=== PATIENT | female | born 1970 | race American Indian/Alaskan Native ===

== ENCOUNTER 2019-05-05 03:26 | Inpatient (IN) | payer MEDICARE ==
[2019-05-05] MEDS ORDERED: HALOPERIDOL LACTATE 5 MG/1 ML INJ IM PRN (03:54)
[2019-05-05] MEDS ORDERED: LORazepam 2 MG/ML VIAL IM PRN (03:54)
[2019-05-05] MEDS: LORazepam 2 MG TAB PO PRN (18:33)
[2019-05-05] MEDS: HALOPERIDOL 5 MG TAB PO PRN (18:33)
[2019-05-05 18:41] LABS: Basophils # (Auto) 0.1 K/mm3 (0.0-0.1); Basophils % (Auto) 1.4 % (0.0-1.8); Eosinophils % (Auto) 0.8 % (0.0-4.3); Hemoglobin 13.7 gm/dl (10.1-14.3); Lymphocytes # (Auto) 1.3 K/mm3 (1.2-5.4); Lymphocytes % (Auto) 27.7 % (13.4-35.0); Mean Corpuscular HGB Conc 33 % (30-34); Mean Corpuscular Volume 103 fl (79-97); Monocytes # (Auto) 0.3 K/mm3 (0.0-0.8); Monocytes % (Auto) 7.2 % (0.0-7.3); Platelet Count 277 K/mm3 (140-440); Red Blood Count 4.09 M/mm3 (3.65-5.03); Red Cell Distribution Width 16.9 % (13.2-15.2)
[2019-05-05 18:49] LABS: BUN/Creatinine Ratio 14; Blood Urea Nitrogen 7 mg/dL (7-17); Calcium 9.3 mg/dL (8.4-10.2); Chol/HDL Ratio 3.12 %; HDL Cholesterol 56 mg/dL (40-59); Hemolysis Index 75; LDL Cholesterol,Direct 101 mg/dL (50-130)
[2019-05-05] MEDS: ACETAMINOPHEN 325 MG TAB PO PRN (20:53)
[2019-05-05] MEDS: NICOTINE 21 MG/24 HR PATCH TD SCH (22:07)
[2019-05-06] MEDS: LORazepam 2 MG TAB PO PRN ×3 (08:07→22:49)
[2019-05-06] MEDS: ACETAMINOPHEN 325 MG TAB PO PRN ×2 (08:07→23:05)
[2019-05-06] MEDS: NICOTINE 21 MG/24 HR PATCH TD SCH (10:11)
--- NOTE | 2019-05-06 11:48 | Consultation ---
History of Present Illness - History of Present Illness 49-year-old woman who presents to the hospital to psychiatric unit for suicidal ideation and depression. Medicine consulted for management of chronic medical issues Patient reports history of neuropathy for which she takes gabapentin and ports history of traumatic brain injury for which she takes Tylenol 3 for chronic headaches. She states that she still feels depressed, but would like to get her meds for chronic conditions. Past medical history Neuropathy, history of TBI with chronic headaches, hypertension Psychiatric history Bipolar 1 disorder, depressed, severe (Acute) Post traumatic stress disorder (PTSD) (Acute) - Substance History Drug Use: marijuana Tobacco Type: Cigarettes Alcohol Use: Yes (Socially, per patient) - Social History Social history: single (homeless, disabled, completed high school, no legal problems and no access to guns) Review of Systems Psychiatric: insomnia, depression, irritability headaches, neuropathy pain Medications and Allergies Allergies Allergy/AdvReac Type Severity Reaction Status Date / Time metoclopramide [From Reglan] AdvReac Swelling Verified 05/05/19 03:42 Home Medications Medication Instructions Recorded Confirmed Last Taken Type ARIPiprazole [Abilify TAB] 5 mg PO QDAY #30 tablet 05/13/19 Unknown Rx Gabapentin [Neurontin] 300 mg PO TID #90 capsule 05/13/19 Unknown Rx Hydrochlorothiazide 12.5 mg PO DAILY #30 05/13/19 Unknown Rx Mirtazapine [Remeron 15mg TAB] 15 mg PO QHS #30 tablet 05/13/19 Unknown Rx Nicotine [Habitrol] 21 mg TD QDAY #30 patch 05/13/19 Unknown Rx Propranolol [Inderal] 20 mg PO Q12HR #60 tablet 05/13/19 Unknown Rx amLODIPine 10 mg PO DAILY #30 05/13/19 Unknown Rx Active Meds: Active Medications Acetaminophen (Tylenol) 650 mg PO Q6H PRN PRN Reason: Pain, Mild (1-3) Last Admin: 05/06/19 08:07 Dose: 650 mg Documented by: Haloperidol (Haldol) 5 mg PO Q6H PRN PRN Reason: Agitation Last Admin: 05/05/19 18:33 Dose: 5 mg Documented by: Haloperidol Lactate (Haldol) 5 mg IM Q6H PRN PRN Reason: Agitation Lorazepam (Ativan) 2 mg PO Q6H PRN PRN Reason: Agitation Last Admin: 05/06/19 08:07 Dose: 2 mg Documented by: Lorazepam (Ativan) 2 mg IM Q6H PRN PRN Reason: Agitation Miscellaneous Medication (Amlodipine) 10 mg PO DAILY AMY Miscellaneous Medication (Hydrochlorothiazide) 12.5 mg PO DAILY [facility] Nicotine (Habitrol) 21 mg TD QDAY AMY Last Admin: 05/06/19 10:11 Dose: 21 mg Documented by: Review of Systems All systems: negative Constitutional: no anorexia Ears, nose, mouth and throat: other (Headache), no ear pain Breasts: deferred Cardiovascular: no chest pain Respiratory: no cough Gastrointestinal: no abdominal pain Rectal: no pain Musculoskeletal: no neck stiffness Integumentary: no rash Neurological: other (Neuropathy pain), no head injury Psychiatric: no anxiety Endocrine: no cold intolerance Hematologic/Lymphatic: no easy bruising Allergic/Immunologic: no urticaria Exam - Constitutional Vitals: Temp Pulse Resp BP Pulse Ox 97.6 F 72 18 119/76 100 05/06/19 10:00 05/06/19 10:00 05/05/19 22:00 05/06/19 10:00 05/06/19 10:00 General appearance: Present: no acute distress, well-nourished - EENT Eyes: Present: PERRL ENT: hearing intact, clear oral mucosa - Neck Neck: Present: supple, normal ROM - Respiratory Respiratory effort: normal Respiratory: bilateral: CTA - Cardiovascular Heart Sounds: Present: S1 & S2. Absent: rub, click - Extremities Extremities: pulses symmetrical, No edema Peripheral Pulses: within normal limits - Abdominal General gastrointestinal: Present: soft, non-tender, non-distended, normal bowel sounds Female genitourinary: Present: normal - Integumentary Integumentary: Present: clear, warm, dry - Musculoskeletal Musculoskeletal: gait normal, strength equal bilaterally - Psychiatric Psychiatric: no appropriate mood/affect, intact judgment & insight - Neurologic Neurologic: CNII-XII intact, moves all extremities Results - Labs CBC & Chem 7: 05/05/19 18:22 05/05/19 18:22 Labs: Abnormal lab results 05/05/19 05/05/19 05/05/19 Range/Units 16:25 18:22 18:22 MCV 103 H (79-97) fl MCH 33 H (28-32) pg RDW 16.9 H (13.2-15.2) % Creatinine 0.5 L (0.7-1.2) mg/dL Glucose 126 H (65-100) mg/dL POC Glucose 151 H (70-105) Triglycerides 150 H (2-149) mg/dL Assessment and Plan 49-year-old woman with history of bipolar disease who presents with suicidal ideation and uncontrolled bipolar disease. Labs- stable htn restart home meds Chronic headaches, history of TBI Restart Tylenol 3 Neuropathy Continue gabapentin
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
[2019-05-06] MEDS: ARIPiprazole 10 MG TAB PO SCH (13:14)
[2019-05-06] MEDS: ACETAMINOPHEN W/CODEINE 300-30 MG TAB PO PRN (15:39)
[2019-05-06 16:05] LABS: Bilirubin,Urine NEG (Negative); Blood,Urine NEG (Negative); Color,Urine Straw (Yellow); Protein,Urine <15 mg/dL mg/dL (Negative); Urobilinogen,Urine < 2.0 mg/dL (<2.0)
[2019-05-06] MEDS: HALOPERIDOL 5 MG TAB PO PRN (22:49)
[2019-05-07] MEDS: ACETAMINOPHEN W/CODEINE 300-30 MG TAB PO PRN ×2 (08:51→15:14)
[2019-05-07] MEDS: NICOTINE 21 MG/24 HR PATCH TD SCH (09:18)
[2019-05-07] MEDS: ARIPiprazole 10 MG TAB PO SCH (09:19)
[2019-05-07] MEDS: hydroCHLOROthiazide 12.5 MG CAP PO SCH (09:19)
[2019-05-07] MEDS: amLODIPine 10 MG TAB PO SCH (09:19)
[2019-05-07] MEDS ORDERED: NON-FORMULARY EACH (Hydrochlorothiazide 12.5 MG) PO SCH (10:00)
[2019-05-07] MEDS ORDERED: NON-FORMULARY EACH (Amlodipine 10 MG) PO SCH (10:00)
--- NOTE | 2019-05-07 11:37 | Progress Note ---
Subjective Date of service: 05/07/19 Principal diagnosis: Bipolar I depressed, PTSD Subjective Comment: Patient is severely depressed and anxious. She also complains of chronic headaches. MSE Orientation: time, place, person Affect: depressed Mood: congruent with affect Thought Process: Intact Perceptions: none Speech: normal rate and pattern Concentration: focused Motor activity: normal Level of consciousness: alert Memory: Intact Sleep Symptoms: Insomnia Appetite: decreased Interaction: cooperative Objective - Criteria for Continued Treatment Criteria for Continued Treatment: Improving Level of Functioning, Stablizing Level of Functioning, Improving Emotional/Socia - Objective Observation Participation Level: Moderate Assessment and Plan - Patient Problems (1) Bipolar 1 disorder, depressed, severe Current Visit: Yes Status: Acute Plan to address problem: Patient will be admitted for inpatient psychiatric evaluation, medication adjustment and close monitoring The patient's behavior, mood, sleep and appetite will be closely monitored. Patient will be enrolled in individual and group therapeutic sessions and enc ouraged to attend. Patient will be provided with a safe and structured environment. Patient's physical health needs will be addressed by the Hospitalist. Social Assessment will be completed and the Hydro Technician will work with patient and family to ensure a suitable and safe disposition Medication adjustment will be made as clinically indicated Will add Gabapentin 300mg tid to help with mood, anxiety and headaches. (2) Post traumatic stress disorder (PTSD) Current Visit: Yes Status: Acute Medications & Allergies - Medications Allergies/Adverse Reactions: Allergies metoclopramide [From Reglan] Adverse Reaction (Verified 05/05/19 03:42) Swelling Home Medications: Home Medications Medication Instructions Recorded Confirmed Last Taken Type Hydrochlorothiazide 12.5 mg PO DAILY 05/05/19 05/05/19 Unknown History amLODIPine 10 mg PO DAILY 05/05/19 05/05/19 Unknown History Active Medications: Generic Name Dose Route Start Last Admin Trade Name Freq PRN Reason Stop Dose Admin Acetaminophen 650 mg 05/05/19 20:03 05/06/19 23:05 Tylenol PO 650 mg Q6H PRN Administration Pain, Mild (1-3) Acetaminophen/Codeine Phosphate 1 tab 05/06/19 14:05 05/07/19 08:51 Tylenol #3 PO 1 tab Q6H PRN Administration Headache Amlodipine Besylate 10 mg 05/07/19 10:00 05/07/19 09:19 Norvasc PO 10 mg DAILY AMY Administration Aripiprazole 5 mg 05/06/19 12:00 05/07/19 09:19 Abilify PO 5 mg QDAY AMY Administration Haloperidol 5 mg 05/05/19 03:53 05/06/19 22:49 Haldol PO 5 mg Q6H PRN Administration Agitation Haloperidol Lactate 5 mg 05/05/19 03:54 Haldol IM Q6H PRN Agitation Hydrochlorothiazide 12.5 mg 05/07/19 10:00 05/07/19 09:19 Hctz PO 12.5 mg QDAY AMY Administration Lorazepam 2 mg 05/05/19 03:53 05/06/19 22:49 Ativan PO 2 mg Q6H PRN Administration Agitation Lorazepam 2 mg 05/05/19 03:54 Ativan IM Q6H PRN Agitation Nicotine 21 mg 05/05/19 22:00 05/07/19 09:18 Habitrol TD 21 mg QDAY AMY Administration
[2019-05-07] MEDS: GABAPENTIN 300 MG CAP PO SCH ×2 (14:03→20:06)
[2019-05-07] MEDS: ACETAMINOPHEN 325 MG TAB PO PRN (20:05)
[2019-05-07] MEDS: HALOPERIDOL 5 MG TAB PO PRN (20:05)
[2019-05-08] MEDS: NICOTINE 21 MG/24 HR PATCH TD SCH (09:09)
[2019-05-08] MEDS: GABAPENTIN 300 MG CAP PO SCH ×3 (09:09→20:08)
[2019-05-08] MEDS: ARIPiprazole 10 MG TAB PO SCH (09:09)
[2019-05-08] MEDS: hydroCHLOROthiazide 12.5 MG CAP PO SCH (09:30)
[2019-05-08] MEDS: amLODIPine 10 MG TAB PO SCH (09:30)
--- NOTE | 2019-05-08 11:56 | Progress Note ---
Subjective Date of service: 05/08/19 Principal diagnosis: Bipolar I depressed, PTSD Subjective Comment: Patient is severely depressed and anxious. She is tearful this morning MSE Orientation: time, place, person Affect: depressed Mood: congruent with affect Thought Process: Intact Perceptions: none Speech: normal rate and pattern Concentration: focused Motor activity: normal Level of consciousness: alert Memory: Intact Sleep Symptoms: Insomnia Appetite: decreased Interaction: cooperative Objective - Criteria for Continued Treatment Criteria for Continued Treatment: Improving Level of Functioning, Stablizing Level of Functioning, Improving Emotional/Socia - Objective Observation Participation Level: Moderate Assessment and Plan - Patient Problems (1) Bipolar 1 disorder, depressed, severe Current Visit: Yes Status: Acute Plan to address problem: Patient will be admitted for inpatient psychiatric evaluation, medication adjustment and close monitoring The patient's behavior, mood, sleep and appetite will be closely monitored. Patient will be enrolled in individual and group therapeutic sessions and encouraged to attend. Patient will be provided with a safe and structured environment. Patient's physical health needs will be addressed by the Hospitalist. Social Assessment will be completed and the Event Av Operator will work with patient and family to ensure a suitable and safe disposition Medication adjustment will be made as clinically indicated (2) Post traumatic stress disorder (PTSD) Current Visit: Yes Status: Acute Medications & Allergies - Medications Allergies/Adverse Reactions: Allergies metoclopramide [From Reglan] Adverse Reaction (Verified 05/05/19 03:42) Swelling Home Medications: Home Medications Medication Instructions Recorded Confirmed Last Taken Type Hydrochlorothiazide 12.5 mg PO DAILY 05/05/19 05/05/19 Unknown History amLODIPine 10 mg PO DAILY 05/05/19 05/05/19 Unknown History Active Medications: Generic Name Dose Route Start Last Admin Trade Name Freq PRN Reason Stop Dose Admin Acetaminophen 650 mg 05/05/19 20:03 05/07/19 20:05 Tylenol PO 650 mg Q6H PRN Administration Pain, Mild (1-3) Acetaminophen/Codeine Phosphate 1 tab 05/06/19 14:05 05/07/19 15:14 Tylenol #3 PO 1 tab Q6H PRN Administration Headache Amlodipine Besylate 10 mg 05/07/19 10:00 05/08/19 09:30 Norvasc PO 10 mg DAILY AMY Administration Aripiprazole 5 mg 05/06/19 12:00 05/08/19 09:09 Abilify PO 5 mg QDAY AMY Administration Gabapentin 300 mg 05/07/19 14:00 05/08/19 09:09 Neurontin PO 300 mg TID AMY Administration Haloperidol 5 mg 05/05/19 03:53 05/07/19 20:05 Haldol PO 5 mg Q6H PRN Administration Agitation Haloperidol Lactate 5 mg 05/05/19 03:54 Haldol IM Q6H PRN Agitation Hydrochlorothiazide 12.5 mg 05/07/19 10:00 05/08/19 09:30 Hctz PO 12.5 mg QDAY AMY Administration Lorazepam 2 mg 05/05/19 03:54 Ativan IM Q6H PRN Agitation Nicotine 21 mg 05/05/19 22:00 05/08/19 09:09 Habitrol TD 21 mg QDAY AMY Administration
[2019-05-09] MEDS: GABAPENTIN 300 MG CAP PO SCH ×3 (07:57→21:06)
--- NOTE | 2019-05-09 09:55 | Progress Note ---
Subjective Date of service: 05/09/19 Principal diagnosis: Bipolar I depressed, PTSD Subjective Comment: Patient is improving. MSE Orientation: time, place, person Affect: depressed Mood: congruent with affect Thought Process: Intact Perceptions: none Speech: normal rate and pattern Concentration: focused Motor activity: normal Level of consciousness: alert Memory: Intact Sleep Symptoms: Insomnia Appetite: decreased Interaction: cooperative Objective - Criteria for Continued Treatment Criteria for Continued Treatment: Improving Level of Functioning, Reducing Isolative Behaviors, Improving Emotional/Socia - Objective Observation Participation Level: Moderate Assessment and Plan - Patient Problems (1) Bipolar 1 disorder, depressed, severe Current Visit: Yes Status: Acute Plan to address problem: Patient will be admitted for inpatient psychiatric evaluation, medication adjustment and close monitoring The patient's behavior, mood, sleep and appetite will be closely monitored. Patient will be enrolled in individual and group therapeutic sessions and encouraged to attend. Patient will be provided with a safe and structured environment. Patient's physical health needs will be addressed by the Hospitalist. Social Assessment will be completed and the Food Service Counter Clerk will work with patient and family to ensure a suitable and safe disposition Medication adjustment will be made as clinically indicated (2) Post traumatic stress disorder (PTSD) Current Visit: Yes Status: Acute Medications & Allergies - Medications Allergies/Adverse Reactions: Allergies metoclopramide [From Reglan] Adverse Reaction (Verified 05/05/19 03:42) Swelling Home Medications: Home Medications Medication Instructions Recorded Confirmed Last Taken Type Hydrochlorothiazide 12.5 mg PO DAILY 05/05/19 05/05/19 Unknown History amLODIPine 10 mg PO DAILY 05/05/19 05/05/19 Unknown History Active Medications: Generic Name Dose Route Start Last Admin Trade Name Freq PRN Reason Stop Dose Admin Acetaminophen 650 mg 05/05/19 20:03 05/07/19 20:05 Tylenol PO 650 mg Q6H PRN Administration Pain, Mild (1-3) Acetaminophen/Codeine Phosphate 1 tab 05/06/19 14:05 05/07/19 15:14 Tylenol #3 PO 1 tab Q6H PRN Administration Headache Amlodipine Besylate 10 mg 05/07/19 10:00 05/08/19 09:30 Norvasc PO 10 mg DAILY AMY Administration Aripiprazole 5 mg 05/06/19 12:00 05/08/19 09:09 Abilify PO 5 mg QDAY AMY Administration Gabapentin 300 mg 05/07/19 14:00 05/09/19 07:57 Neurontin PO 300 mg TID AMY Administration Haloperidol 5 mg 05/05/19 03:53 05/07/19 20:05 Haldol PO 5 mg Q6H PRN Administration Agitation Haloperidol Lactate 5 mg 05/05/19 03:54 Haldol IM Q6H PRN Agitation Hydrochlorothiazide 12.5 mg 05/07/19 10:00 05/08/19 09:30 Hctz PO 12.5 mg QDAY AMY Administration Lorazepam 2 mg 05/05/19 03:54 Ativan IM Q6H PRN Agitation Nicotine 21 mg 05/05/19 22:00 05/08/19 09:09 Habitrol TD 21 mg QDAY AMY Administration
[2019-05-09] MEDS: hydroCHLOROthiazide 12.5 MG CAP PO SCH (09:57)
[2019-05-09] MEDS: NICOTINE 21 MG/24 HR PATCH TD SCH (09:57)
[2019-05-09] MEDS: ARIPiprazole 10 MG TAB PO SCH (09:57)
[2019-05-09] MEDS: amLODIPine 10 MG TAB PO SCH (09:58)
[2019-05-09] MEDS: MIRTAZAPINE 15 MG TAB PO SCH (21:06)
[2019-05-09] MEDS: HALOPERIDOL 5 MG TAB PO PRN (21:06)
[2019-05-10] MEDS: GABAPENTIN 300 MG CAP PO SCH ×3 (08:41→20:06)
[2019-05-10] MEDS: ARIPiprazole 10 MG TAB PO SCH (10:29)
[2019-05-10] MEDS: amLODIPine 10 MG TAB PO SCH (10:33)
[2019-05-10] MEDS: hydroCHLOROthiazide 12.5 MG CAP PO SCH (10:34)
[2019-05-10] MEDS: NICOTINE 21 MG/24 HR PATCH TD SCH (11:48)
[2019-05-10] MEDS: MIRTAZAPINE 15 MG TAB PO SCH (21:07)
[2019-05-11] MEDS: GABAPENTIN 300 MG CAP PO SCH ×3 (08:43→20:53)
[2019-05-11] MEDS: ARIPiprazole 10 MG TAB PO SCH (09:13)
[2019-05-11] MEDS: NICOTINE 21 MG/24 HR PATCH TD SCH (09:14)
[2019-05-11] MEDS: hydroCHLOROthiazide 12.5 MG CAP PO SCH (09:14)
[2019-05-11] MEDS: amLODIPine 10 MG TAB PO SCH (09:14)
[2019-05-11] MEDS: PROPRANOLOL 10 MG TAB PO SCH (21:11)
[2019-05-11] MEDS: MIRTAZAPINE 15 MG TAB PO SCH (21:13)
[2019-05-12] MEDS: GABAPENTIN 300 MG CAP PO SCH ×3 (08:07→21:04)
[2019-05-12] MEDS: hydroCHLOROthiazide 12.5 MG CAP PO SCH (09:57)
[2019-05-12] MEDS: ARIPiprazole 10 MG TAB PO SCH (09:57)
[2019-05-12] MEDS: NICOTINE 21 MG/24 HR PATCH TD SCH (09:57)
[2019-05-12] MEDS: amLODIPine 10 MG TAB PO SCH (09:58)
[2019-05-12] MEDS: PROPRANOLOL 10 MG TAB PO SCH ×2 (09:58→21:05)
--- NOTE | 2019-05-12 17:27 | Progress Note ---
Subjective Date of service: 05/10/19 Principal diagnosis: Bipolar I depressed, PTSD Subjective Comment: Patient is improving. MSE Orientation: time, place, person Affect: depressed Mood: congruent with affect Thought Process: Intact Perceptions: none Speech: normal rate and pattern Concentration: focused Motor activity: normal Level of consciousness: alert Memory: Intact Sleep Symptoms: Insomnia Appetite: decreased Interaction: cooperative Objective - Criteria for Continued Treatment Criteria for Continued Treatment: Improving Level of Functioning, Improving Emotional/Socia, Decreasing Frequency of Hospitalization - Objective Observation Participation Level: Moderate Assessment and Plan - Patient Problems (1) Bipolar 1 disorder, depressed, severe Current Visit: Yes Status: Acute Plan to address problem: Patient will be admitted for inpatient psychiatric evaluation, medication adjustment and close monitoring The patient's behavior, mood, sleep and appetite will be closely monitored. Patient will be enrolled in individual and group therapeutic sessions and encouraged to attend. Patient will be provided with a safe and structured environment. Patient's physical health needs will be addressed by the Hospitalist. Social Assessment will be completed and the Storage Battery Charger will work with patient and family to ensure a suitable and safe disposition Medication adjustment will be made as clinically indicated (2) Post traumatic stress disorder (PTSD) Current Visit: Yes Status: Acute
--- NOTE | 2019-05-12 17:27 | Progress Note ---
Subjective Date of service: 05/10/19 Principal diagnosis: Bipolar I depressed, PTSD Subjective Comment: Patient is improving. MSE Orientation: time, place, person Affect: depressed Mood: congruent with affect Thought Process: Intact Perceptions: none Speech: normal rate and pattern Concentration: focused Motor activity: normal Level of consciousness: alert Memory: Intact Sleep Symptoms: Insomnia Appetite: decreased Interaction: cooperative Objective - Criteria for Continued Treatment Criteria for Continued Treatment: Improving Level of Functioning, Stablizing Level of Functioning, Improving Emotional/Socia - Objective Observation Participation Level: Moderate Assessment and Plan - Patient Problems (1) Bipolar 1 disorder, depressed, severe Current Visit: Yes Status: Acute Plan to address problem: Patient will be admitted for inpatient psychiatric evaluation, medication adjustment and close monitoring The patient's behavior, mood, sleep and appetite will be closely monitored. Patient will be enrolled in individual and group therapeutic sessions and encouraged to attend. Patient will be provided with a safe and structured environment. Patient's physical health needs will be addressed by the Hospitalist. Social Assessment will be completed and the Railroad Accountant will work with patient and family to ensure a suitable and safe disposition Medication adjustment will be made as clinically indicated (2) Post traumatic stress disorder (PTSD) Current Visit: Yes Status: Acute
[2019-05-12] MEDS: ACETAMINOPHEN 325 MG TAB PO PRN (20:16)
[2019-05-12] MEDS: MIRTAZAPINE 15 MG TAB PO SCH (21:07)
[2019-05-13] MEDS: GABAPENTIN 300 MG CAP PO SCH ×3 (08:42→21:23)
--- NOTE | 2019-05-13 09:33 | Progress Note ---
Subjective Date of service: 05/13/19 Principal diagnosis: Bipolar I depressed, PTSD Subjective Comment: Patient is improving. She reports good and stable mood. She denies SI/HI/AVH. She is compliant with medications and denies side effects Per Nursing Report: Pt is compliant with routine meds. Remains independent with colostomy care. Had a good night slept for 8 hrs. Pt is observed in the activity room interacting with her peers. She is a/o x 4, pleasant on approach and mood and affect is appropriate. She is able to verbalize her needs and denies any pain. No behavior issue MSE Orientation: time, place, person Affect: Good Mood: congruent with affect Thought Process: Intact Perceptions: none Speech: normal rate and pattern Concentration: focused Motor activity: normal Level of consciousness: alert Memory: Intact Sleep Symptoms: None Appetite: Good Interaction: cooperative Objective - Criteria for Continued Treatment Criteria for Continued Treatment: Stablizing Level of Functioning - Objective Observation Participation Level: Full Assessment and Plan - Patient Problems (1) Bipolar 1 disorder, depressed, severe Current Visit: Yes Status: Acute Plan to address problem: Patient will be admitted for inpatient psychiatric evaluation, medication adjustment and close monitoring The patient's behavior, mood, sleep and appetite will be closely monitored. Patient will be enrolled in individual and group therapeutic sessions and encouraged to attend. Patient will be provided with a safe and structured environment. Patient's physical health needs will be addressed by the Hospitalist. Social Assessment will be completed and the Poultry Husbandry Teacher will work with patient and family to ensure a suitable and safe disposition Medication adjustment will be made as clinically indicated (2) Post traumatic stress disorder (PTSD) Current Visit: Yes Status: Acute Medications & Allergies - Medications Allergies/Adverse Reactions: Allergies metoclopramide [From Reglan] Adverse Reaction (Verified 05/05/19 03:42) Swelling Home Medications: Home Medications Medication Instructions Recorded Confirmed Last Taken Type Hydrochlorothiazide 12.5 mg PO DAILY 05/05/19 05/05/19 Unknown History amLODIPine 10 mg PO DAILY 05/05/19 05/05/19 Unknown History Active Medications: Generic Name Dose Route Start Last Admin Trade Name Freq PRN Reason Stop Dose Admin Acetaminophen 650 mg 05/05/19 20:03 05/12/19 20:16 Tylenol PO 650 mg Q6H PRN Administration Pain, Mild (1-3) Acetaminophen/Codeine Phosphate 1 tab 05/06/19 14:05 05/07/19 15:14 Tylenol #3 PO 1 tab Q6H PRN Administration Headache Amlodipine Besylate 10 mg 05/07/19 10:00 05/12/19 09:58 Norvasc PO 10 mg DAILY AMY Administration Aripiprazole 5 mg 05/06/19 12:00 05/12/19 09:57 Abilify PO 5 mg QDAY AMY Administration Gabapentin 300 mg 05/07/19 14:00 05/13/19 08:42 Neurontin PO 300 mg TID AMY Administration Haloperidol 5 mg 05/05/19 03:53 05/09/19 21:06 Haldol PO 5 mg Q6H PRN Administration Agitation Haloperidol Lactate 5 mg 05/05/19 03:54 Haldol IM Q6H PRN Agitation Hydrochlorothiazide 12.5 mg 05/07/19 10:00 05/12/19 09:57 Hctz PO 12.5 mg QDAY AMY Administration Lorazepam 2 mg 05/05/19 03:54 Ativan IM Q6H PRN Agitation Mirtazapine 15 mg 05/09/19 22:00 05/12/19 21:07 Remeron PO 15 mg QHS AMY Administration Nicotine 21 mg 05/05/19 22:00 05/12/19 09:57 Habitrol TD 21 mg QDAY AMY Administration Propranolol HCl 20 mg 05/11/19 22:00 05/12/19 21:05 Inderal PO 20 mg Q12HR AMY Administration
[2019-05-13] MEDS: ARIPiprazole 10 MG TAB PO SCH (10:05)
[2019-05-13] MEDS: hydroCHLOROthiazide 12.5 MG CAP PO SCH (10:06)
[2019-05-13] MEDS: PROPRANOLOL 10 MG TAB PO SCH ×2 (10:07→21:22)
[2019-05-13] MEDS: amLODIPine 10 MG TAB PO SCH (10:07)
[2019-05-13] MEDS: NICOTINE 21 MG/24 HR PATCH TD SCH (10:08)
[2019-05-13] MEDS: MIRTAZAPINE 15 MG TAB PO SCH (21:23)
[2019-05-14] MEDS: GABAPENTIN 300 MG CAP PO SCH (08:01)
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
[2019-05-14] MEDS: PROPRANOLOL 10 MG TAB PO SCH (11:03)
[2019-05-14] MEDS: hydroCHLOROthiazide 12.5 MG CAP PO SCH (11:05)
[2019-05-14] MEDS: amLODIPine 10 MG TAB PO SCH (11:05)
[2019-05-14] MEDS: NICOTINE 21 MG/24 HR PATCH TD SCH (11:06)
[2019-05-14] MEDS: ARIPiprazole 10 MG TAB PO SCH (11:25)
[2019-05-14 14:16] VITALS: BP 137/82
== END 2019-05-14 12:30 | disposition home or self-care (01) | DRG 885 ==
LOC: 5A 03:26 → UNDOADMIN 03:26 → 5A 03:42
PROVIDERS: ADMIT Psychiatry & Neurology Psychiatry; ATTEND Psychiatry & Neurology Psychiatry
DX: F31.9 Bipolar disorder, unspecified (principal); I10 Essential (primary) hypertension; F43.10 Post-traumatic stress disorder, unspecified; F17.210 Nicotine dependence, cigarettes, uncomplicated; F12.90 Cannabis use, unspecified, uncomplicated; Z59.0 Homelessness; Z88.8 Allergy status to other drugs, medicaments and biological substances; Z79.899 Other long term (current) drug therapy
CPT/HCPCS: 36415; 80048; 80061; 81001; 82962; 83036; 85025; G0378; J2060